=== PATIENT | female | born 1995 ===

== ENCOUNTER 2016-08-10 19:01 | Emergency (ER) | payer OTHER ==
[2016-08-10 19:10] VITALS: BP 122/76; PULSE 78; RESP 20; TEMP 97.6; O2SAT 98
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
== END 2016-08-10 19:56 | disposition home or self-care (01) ==
LOC: H.ER 19:01
DX: F41.9 Anxiety disorder, unspecified (principal)

== ENCOUNTER 2018-01-07 16:55 | Emergency (ER) | payer OTHER ==
[2018-01-07 17:21] VITALS: BP 109/72; PULSE 72; RESP 16; TEMP 98.3; O2SAT 98
--- NOTE | 2018-01-07 18:32 | ED PDOC ---
History of Present Illness History of Present Illness: Valerie Soriano is a 22 year old female with a past medical history of depression and ADHD who is presenting to the ED for evaluation of body aches, dry cough, throat pain, nasal congestion, and associated global headache onset this morning when waking up. Patient states that she attributed the symptoms to her allergies and took allergy medications with no relief of symptoms, prompting the ED evaluation. She reports multiple sick contacts at college but denies any recent travel. Patient also denies any fevers, chills, nausea, vomiting, diarrhea, SOB, chest pain, abdominal pain, or urinary symptoms. Of note, patient's last period was 2 months ago and states she has an IUD. PMD: none provided HPI: Influenza Time Seen by Provider: 01/07/18 17:22 Chief Complaint: Cough, Cold, Congestion Chief Complaint (Provider): Cough, Cold, Congestion History Per: Patient Exam Limitations: no limitations Have you had recent travel within the past 21 days to any of: No Onset/Duration Of Symptoms: Hrs Symptoms include: headache, bodyaches, nasal congestion. denies: fever, vom iting, diarrhea, chest pain Past Medical History Reviewed: Historical Data, Nursing Documentation, Vital Signs Vital Signs: Last Vital Signs Temp 98.3 F 01/07/18 17:18 Pulse 72 01/07/18 17:18 Resp 16 01/07/18 17:18 BP 109/72 01/07/18 17:18 Pulse Ox 98 01/07/18 17:18 - Medical History PMH: Anxiety, Depression Other PMH: ADHD - Surgical History Surgical History: No Surg Hx - Family History Family History: States: Unknown Family Hx - Home Medications Home Medications: Ambulatory Orders Medication Instructions Recorded Fluticasone Nasal [Flonase] 1 spr NS DAILY #1 unit 01/07/18 RX: Naproxen 500 mg PO BID PRN #20 tab 01/07/18 RX: Promethazine DM [Phenergan DM 5 ml PO Q6 PRN #150 ml 01/07/18 Syrup] - Allergies Allergies/Adverse Reactions: Allergies Allergy/AdvReac Type Severity Reaction Status Date / Time No Known Allergies Allergy Verified 01/07/18 17:17 Review of Systems ROS Statement: Except As Marked, All Systems Reviewed And Found Negative Constitutional: Positive for: Other (bodyaches). Negative for: Fever, Chills ENT: Positive for: Nose Congestion, Throat Pain Cardiovascular: Negative for: Chest Pain Respiratory: Positive for: Cough Gastrointestinal: Negative for: Nausea, Vomiting, Abdominal Pain, Diarrhea Genitourinary Female: Negative for: Other (urinary symptoms) Neurological: Positive for: Headache Physical Exam - Reviewed Nursing Documentation Reviewed: Yes Vital Signs Reviewed: Yes - Physical Exam Comments: GENERAL APPEARANCE: Patient is awake, alert, oriented x 3, in no acute distress. Resting comfortably. SKIN: Warm, dry; (-) cyanosis. EYES: (-) conjunctival pallor, (-) scleral icterus. ENMT: Mucous membranes moist. TMs non-bulging, non-erythematous. (+) faint phar yngeal erythema (-) exudate (-) hypertrophy. Nares patent. (-) sinus tenderness. NECK: Supple, FROM (-) tenderness, (-) stiffness, (-) lymphadenopathy. CHEST AND RESPIRATORY: (-) rales, (-) rhonchi, (-) wheezes; breath sounds equal bilaterally. Respirations even and nonlabored. HEART AND CARDIOVASCULAR: (-) irregularity ABDOMEN AND GI: Soft (-) distention. (-) tenderness (-) guarding, (-) rebound (- ) CVA tenderness. EXTREMITIES: (-) deformity NEURO AND PSYCH: Mental status as above; (-) focal findings. Gait: steady. Speech: clear. (-) facial asymmetry Medical Decision Making Medical Decision Making: Time: 18:05 Impression: body aches, throat pain, cough, probable viral illness Plan: --Tylenol 650 mg PO --Throat Culture --Influenza A B --Rapid Strep 1930 Rapid Strep: Negative Influenza: Negative On re-evaluation, patient reports improvement of symptoms. On exam, patient remains AAOx3, in no acute distress. Lungs clear to auscultation, cardiac RRR, abdomen soft, non-tender, repeat neuro exam shows no focal findings. Vitals stable. Lab/Diagnostic results d/w the patient in great detail. Diagnosis of bodyaches, throat pain, viral pharyngitis/URI d/w the patient. Based on history, exam and diagnostic results, plan will be for outpatient follow up with PMD/clinic. Patient instructed to follow-up with pmd / referral provided / the clinic in 1- 2 days without fail. Advised to take medication as prescribed. Return to the emergency room at any time for any new or worsening symptoms. Patient states she fully agrees with and understands discharge instructions. States that she agrees with the plan and disposition. Verbalized and repeated discharge instructions and plan. I have given the patient opportunity to ask any additional questions. Scribe Attestation: Documented by Marylin Louis, acting as a scribe for Iza Wong PA-C. Provider Scribe Attestation: All medical record entries made by the Scribe were at my direction and personally dictated by me. I have reviewed the chart and agree that the record accurately reflects my personal performance of the history, physical exam, medical decision making, and the department course for this patient. I have also personally directed, reviewed, and agree with the discharge instructions and disposition. - ECG O2 Sat by Pulse Oximetry: 98 (RA) Pulse Ox Interpretation: Normal Disposition - Clinical Impression Clinical Impression: Cough in adult, Viral pharyngitis, Body aches, Viral syndrome - Patient ED Disposition Is Patient to be Admitted: No Counseled Patient/Family Regarding: Studies Performed, Diagnosis, Need For Followup, Rx Given - Disposition Referrals: [facility] [Outside] Disposition: Routine/Home Disposition Time: 19:30 Condition: STABLE Additional Instructions: The emergency medical care you received today was directed at your acute symptoms. If you were prescribed any medication, please fill it and take as directed. It may take several days for your symptoms to resolve. Return to the Emergency Department if your symptoms worsen, do not improve, or if you have any other problems. Please contact your doctor in 2 days for re-evaluation and follow up / or call one of the physicians/clinics you have been referred to that are listed on the Patient Visit Information form that is included in your discharge packet. Bring any paperwork you were given at discharge with you along with any medications you are taking to your follow up visit. Our treatment cannot replace ongoing medical care by a primary care provider (PCP) outside of the emergency department. Prescriptions: Fluticasone Nasal [Flonase] 1 spr NS DAILY #1 unit RX: Naproxen 500 mg PO BID PRN #20 tab PRN Reason: Pain, Moderate (4-7) RX: Promethazine DM [Phenergan DM Syrup] 5 ml PO Q6 PRN #150 ml PRN Reason: Cough Instructions: Viral Pharyngitis, Cough in Adults, Viral Upper Respiratory Infection, Adult (DC), Cough, Runny Nose, and the Common Cold (DC) Forms: [employer] (Eritrean), [facility] ED School/Work Excuse Print Language: FAROESE - POA Present On Arrival: None Results - Lab Results Lab Results: 01/07/18 01/07/18 18:27 18:27 Influenza Typ A,B (EIA) Negative for flu a/b Grp A Beta Strep Ag Negative
== END 2018-01-07 19:45 | disposition home or self-care (01) ==
LOC: H.ER 16:55
DX: B34.9 Viral infection, unspecified (principal); R05 Cough; J02.9 Acute pharyngitis, unspecified

== ENCOUNTER 2018-02-21 12:42 | Emergency (ER) | payer OTHER ==
[2018-02-21 12:52] VITALS: BP 116/80; PULSE 81; RESP 16; O2SAT 100
[2018-02-21] MEDS ORDERED: Naproxen 500 MG TAB PO ONE (13:06)
--- NOTE | 2018-02-21 13:13 | ED PDOC ---
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 Patient reports to have localized pain that is worse with movement. Patient is right hand dominant and reports no loss of sensation or any other injury. She states she has not taken any medications prior to arrival. Otherwise: (-) numbness, (-) other injury. LMP: mid January but has IUD in place PMD: no provider Past Medical History Reviewed: Historical Data, Nursing Documentation, Vital Signs Vital Signs: Last Vital Signs Temp Pulse 81 02/21/18 12:50 Resp 16 02/21/18 12:50 BP 116/80 02/21/18 12:50 Pulse Ox 100 02/21/18 12:50 - Medical History PMH: Anxiety, Depression Other PMH: ADHD - Surgical History Other surgeries: wisdom teeth extraction. "lung procedure" in [place] as child - Family History Family History: States: Unknown Family Hx - Home Medications Home Medications: Ambulatory Orders Medication Instructions Recorded Fluticasone Nasal [Flonase] 1 spr NS DAILY #1 unit 01/07/18 RX: Naproxen 500 mg PO BID PRN #20 tab 01/07/18 RX: Promethazine DM [Phenergan DM 5 ml PO Q6 PRN #150 ml 01/07/18 Syrup] RX: Naproxen 500 mg PO BID PRN #20 tab 02/21/18 - Allergies Allergies/Adverse Reactions: Allergies Allergy/AdvReac Type Severity Reaction Status Date / Time No Known Allergies Allergy Verified 01/07/18 17:17 Review of Systems ROS Statement: Except As Marked, All Systems Reviewed And Found Negative Musculoskeletal: Positive for: Hand Pain (3rd digit pain with swelling) Physical Exam - Reviewed Nursing Documentation Reviewed: Yes Vital Signs Reviewed: Yes - Physical Exam Comments: GENERAL APPEARANCE: Patient is awake, alert, oriented x 3, tearful. SKIN: Warm, dry; (-) cyanosis. NECK: Supple CHEST AND RESPIRATORY: (-) rales, (-) rhonchi, (-) wheezes; breath sounds equal bilaterally. Respirations nonlabored. HEART AND CARDIOVASCULAR: (-) irregularity RIGHT HAND: (+) edema, tenderness, and faint ecchymosis to the distal phalanx of the 3rd digit (-) skin break (-) erythema; (+) decreased flexion secondary to pain; (+) otherwise ROM and sensation intact; (+) capillary refill <2 seconds; (+) Remainder of upper extremity normal ROM. NEURO AND PSYCH: Mental status as above. Gait: steady. Speech: clear. (-) facial asymmetry - ECG O2 Sat by Pulse Oximetry: 100 (RA) Pulse Ox Interpretation: Normal Medical Decision Making Medical Decision Making: Time: 13:00 Impression: acute finger injury, rule out tuft fracture of the right third digit Plan: -- test --Naproxen 500 mg PO --Right hand x-ray 3 views Urine test: negative. 1320 Hand XR 3 views: no fracture, no dislocation as read by Judith GUADARRAMA. On re-evaluation, patient reports improvement of symptoms. On exam, patient remains AAOx3, in no acute distress. Vitals stable. Lab/Diagnostic results d/w the patient in great detail. Diagnosis of acute finger pain/contusion d/w the patient. Based on history, exam and diagnostic results, plan will be for outpatient follow up. Patient instructed to follow-up with pmd / referral provided / the clinic in 1- 2 days without fail. Advised to take medication as prescribed. Return to the emergency room at any time for any new or worsening symptoms. Patient states she fully agrees with and understands discharge instructions. States that she agrees with the plan and disposition. Verbalized and repeated discharge instructions and plan. I have given the patient opportunity to ask any additional questions. -- Scribe Attestation: Documented by Estiven Cowart, acting as a scribe for Iza Vargas. Provider Scribe Attestation: All medical record entries made by the Scribe were at my direction and personally dictated by me. I have reviewed the chart and agree that the record accurately reflects my personal performance of the history, physical exam, medical decision making, and the department course for this patient. I have also personally directed, reviewed, and agree with the discharge instructions and disposition. Disposition - Clinical Impression Clinical Impression: Finger contusion, Finger injury - Patient ED Disposition Is Patient to be Admitted: No Counseled Patient/Family Regarding: Studies Performed, Diagnosis, Need For Followup, Rx Given - Disposition Referrals: [facility] [Outside] Disposition: Routine/Home Disposition Time: 13:25 Condition: STABLE Additional Instructions: The emergency medical care you received today was directed at your acute symptoms. If you were prescribed any medication, please fill it and take as directed. It may take several days for your symptoms to resolve. Return to the Emergency Department if your symptoms worsen, do not improve, or if you have any other problems. Please contact your doctor in 2 days for re-evaluation and follow up / or call one of the physicians/clinics you have been referred to that are listed on the Patient Visit Information form that is included in your discharge packet. Bring any paperwork you were given at discharge with you along with any medications you are taking to your follow up visit. Our treatment cannot replace ongoing medical care by a primary care provider (PCP) outside of the emergency department. Prescriptions: RX: Naproxen 500 mg PO BID PRN #20 tab PRN Reason: Pain, Moderate (4-7) Instructions: Contusion (DC), Common Finger Injuries Forms: [employer] (Swiss) Print Language: MALTESE - POA Present On Arrival: None
--- NOTE | 2018-02-21 16:37 | RAD ---
PROCEDURE: Right Hand Radiographs. HISTORY: 3rd digit injury r/o tuft fracture COMPARISON: None. FINDINGS: BONES: No acute fracture or destructive bony lesion identified. JOINTS: Normal. No osteoarthritic changes. SOFT TISSUES: Normal. OTHER FINDINGS: None. IMPRESSION: Unremarkable right hand radiographs.
[2018-02-21] MEDS ORDERED: Naproxen 500 MG TAB PO SCH (21:00)
== END 2018-02-21 13:31 | disposition home or self-care (01) ==
LOC: H.ER 12:42
DX: S60.00XA Contusion of unspecified finger without damage to nail, initial encounter (principal); F90.9 Attention-deficit hyperactivity disorder, unspecified type; Z86.59 Personal history of other mental and behavioral disorders; W20.8XXA Other cause of strike by thrown, projected or falling object, initial encounter